=== PATIENT | female | born 1995 | race Caucasian/White ===

== ENCOUNTER 2016-11-13 13:30 | Emergency (ER) | payer OTHER ==
[~2016-11-13] VITALS: Wt 97.0 kg
[2016-11-13] MEDS ORDERED: AZIT250T94 PO (15:18)
[2016-11-13] MEDS ORDERED: D-ME473S18 PO (15:18)
[2016-11-13] MEDS ORDERED: TYL500 PO (15:19)
[2016-11-13] MEDS ORDERED: ACETAMINOPHEN 500 MG TAB PO STA (15:21)
--- NOTE | 2016-11-13 15:38 | ERD ---
ER Documentation Chief Complaint Date/Time DATE: 11/13/16 TIME: 15:30 Chief Complaint fever cough and congestion for the past 2 weeks. no distress. HPI This is a 21-year-old female presents to the ER with a cough for the last 2 weeks. Patient has yellow to green sputum. She developed a fever yesterday. Patient denies any sore throat or ear pain. Patient got her appendix taken out 2 weeks ago at [facility]. Patient still has adelaide in place that she has not been able to follow-up with surgeon. Patient denies any abdominal pain at this time. She denies nausea vomiting or diarrhea. There is no charge from incision site. ROS 12 point review of systems was done, all negative except per HPI. Medications Home Meds Active Scripts Acetaminophen* (Tylenol*) 500 Mg Tab, 1000 MG PO Q8H Y for PAIN AND OR ELEVATED TEMP for 3 Days, TAB Prov:SUNNY CLAIRE 11/13/16 Dextromethorphan Hb-Promethazine Hcl (Promethazine DM Syrup) 473 Ml Syrup, 10 ML PO Q6H Y for COUGH, #4 OZ Prov:SUNNY CLAIRE 11/13/16 Azithromycin* (Zithromax*) 250 Mg Tablet, 250 MG PO .ZPACK DIRECTED, #6 TAB TAKE 500 MG (2 TABS) THE FIRST DAY THEN 250 MG (1 TAB) DAYS 2-5 Prov:SUNNY CLAIRE 11/13/16 Allergies Allergies: Coded Allergies: No Known Allergy (Unverified , 11/13/16) PMhx/Soc Medical and Surgical Hx: pt denies Medical Hx, pt denies Surgical Hx Hx Alcohol Use: No Hx Substance Use: No Hx Tobacco Use: No Smoking Status: Never smoker Physical Exam Vitals Vital Signs Date Time Temp Pulse Resp B/P Pulse Ox O2 Delivery O2 Flow Rate FiO2 11/13/16 13:45 101.4 115 21 125/74 98 Physical Exam GENERAL: The patient is well developed and appropriate for usual state of health , in no apparent distress. HEENT: Atraumatic. CHEST: Clear to auscultation bilaterally. There are no rales, wheezes or rhonchi. HEART: Regular rate and rhythm. No murmurs, clicks, rubs or gallops. ABDOMEN: Soft, nontender and nondistended. Good bowel sounds. No rebound or guarding. No gross peritonitis. No gross organomegaly or masses. No Marquez sign or McBurney point tenderness. NEURO: Alert and oriented. SKIN: patient has a 6cm incision site with [address] no surrounding erythema, wound dehiscence or discharge. Results 24 hrs Current Medications Medications (Trade) Dose Ordered Sig/Kwadwo Route PRN Reason Start Time Stop Time Status Last Admin Dose Admin Acetaminophen (Tylenol Tab) 1,000 mg ONCE STAT PO 11/13/16 15:21 11/13/16 15:22 DC 11/13/16 15:25 Procedures/MDM Patient was examined by myself and by Dr. Amaya. At this time suspicion for post surgery complication is low. Patient does not have any abdominal pain and her physical examination is benign. Patient likely has an upper respiratory infection which may be bacterial in etiology. She will be treated with azithromycin. She will also be sent home with promethazine, Tylenol for fevers. Staple Removal by me: Lorida removed with staple remover without incident. Wound shows no evidence of infection, foreign body, neurologic injury, vascular injury, open joint or tendon laceration. Patient to follow up PRN. Patient is to follow-up with her primary care doctor within 1-2 days or return to ER sooner if symptoms worsen. My medical decision making was shared with the mother she understands and agrees with plan. Departure Diagnosis: Primary Impression: Upper respiratory infection Condition: Stable Patient Instructions: What Is Bronchitis? Additional Instructions: Call your primary care doctor TOMORROW for an appointment during the next 1-2 days.See the doctor sooner or return here if your condition worsens before your appointment time. SUNNY CLAIRE Nov 13, 2016 15:38
== END 2016-11-13 15:40 | disposition home or self-care (01) ==
LOC: FTE 13:30
DX: J06.9 Acute upper respiratory infection, unspecified (principal)
CPT/HCPCS: 99284

== ENCOUNTER 2017-04-13 22:50 | Emergency (ER) | payer MEDICAID, OTHER ==
[~2017-04-13] VITALS: Ht 160 cm; Wt 98.5 kg
[~2017-04-13 22:50] MED LIST: AZIT250T94 PO; D-ME473S18 PO; TYL500 PO
[2017-04-13 22:56] VITALS: Ht 160 cm; Wt 98.5 kg
[2017-04-13] MEDS ORDERED: LORAZEPAM 1 MG TAB PO ONE (23:30)
[2017-04-14 00:15] VITALS: BP 111/48; PULSE 92; RESP 22; TEMP 98.4
--- NOTE | 2017-04-14 02:56 | ERD ---
ER Documentation Chief Complaint Date/Time DATE: 04/14/17 TIME: 02:54 Chief Complaint felt better today vs yesterday but in her mind she still just wants to HPI Patient is a 21-year-old female with high cholesterol who presents with "bad anxiety". The patient says that she was having nausea and vomiting as well with eating. She feels depressed. She denies suicidal or homicidal ideations she says "I just felt [place] at the puncture pillow". She said that her dad left her mother 1 month ago for another woman. She said that she started having anxiety after she had her appendix removed in October. Upon review of old medical records the patient had one previous visit to the ER in October 2016. Review of the emergency department information exchange system shows visits to 2 separate emergency departments. She does not currently have a primary doctor. ROS All systems reviewed and are negative except as per history of present illness. Medications Home Meds Active Scripts Acetaminophen* (Tylenol*) 500 Mg Tab, 1000 MG PO Q8H Y for PAIN AND OR ELEVATED TEMP for 3 Days, TAB Prov:SUNNY CLAIRE 11/13/16 Dextromethorphan Hb-Promethazine Hcl (Promethazine DM Syrup) 473 Ml Syrup, 10 ML PO Q6H Y for COUGH, #4 OZ Prov:SUNNY CLAIRE 11/13/16 Azithromycin* (Zithromax*) 250 Mg Tablet, 250 MG PO .ZPACK DIRECTED, #6 TAB TAKE 500 MG (2 TABS) THE FIRST DAY THEN 250 MG (1 TAB) DAYS 2-5 Prov:SUNNY CLAIRE 11/13/16 Allergies Allergies: Coded Allergies: No Known Allergy (Unverified , 11/13/16) PMhx/Soc Positive for high cholesterol Hx Alcohol Use: No Hx Substance Use: No Hx Tobacco Use: No FmHx Family History: diabetes Physical Exam Vitals Vital Signs Date Time Temp Pulse Resp B/P Pulse Ox O2 Delivery O2 Flow Rate FiO2 04/14/17 00:15 98.4 92 22 111/48 96 Room Air 04/13/17 22:56 98.5 95 22 136/83 98 Physical Exam Const: No acute distress Head: Atraumatic Eyes: Normal Conjunctiva ENT: Normal External Ears, Nose and Mouth. Neck: Full range of motion..~ No meningismus. Resp: Clear to auscultation bilaterally Cardio: Regular rate and rhythm, no murmurs Abd: Soft, non tender, non distended. Normal bowel sounds Skin: No petechiae or rashes Back: No midline or flank tenderness Ext: No cyanosis, or edema Neur: Awake and alert Psych: Depressed affect but no suicidal or homicidal ideation Results 24 hrs Current Medications Medications (Trade) Dose Ordered Sig/Kwadwo Route PRN Reason Start Time Stop Time Status Last Admin Dose Admin Lorazepam (Ativan) 1 mg ONCE ONCE PO 04/13/17 23:30 04/13/17 23:31 DC 04/13/17 23:44 Procedures/MDM Patient is a 21-year-old female presents with depression. She has anxiety as well. She does not appear to have suicidal or homicidal ideation and at this point I doubt the need for 5150 hold. I believe outpatient management is appropriate. She will be given a short course of Ativan for anxiety but will need to follow-up with the local psychiatric resources which I will provide for her. She can return for any worsening symptoms. She should also follow-up with the local clinics for a primary doctor. She can return for any worsening symptoms. She will be discharged with her mom. Departure Diagnosis: Primary Impression: Depression Depression Type: unspecified Qualified Code: F32.9 - Depression, unspecified depression type Condition: Fair Patient Instructions: Depression Referrals: PENDING SALE TO [facility] YOU HAVE RECEIVED A MEDICAL SCREENING EXAM AND THE RESULTS INDICATE THAT YOU DO NOT HAVE A CONDITION THAT REQUIRES URGENT TREATMENT IN THE EMERGENCY DEPARTMENT. FURTHER EVALUATION AND TREATMENT OF YOUR CONDITION CAN WAIT UNTIL YOU ARE SEEN IN YOUR DOCTORS OFFICE WITHIN THE NEXT 1-2 DAYS. IT IS YOUR RESPONSIBILITY TO MAKE AN APPOINTMENT FOR FOLOW-UP CARE. IF YOU HAVE A PRIMARY DOCTOR --you should call your primary doctor and schedule an appointment IF YOU DO NOT HAVE A PRIMARY DOCTOR YOU CAN CALL OUR PHYSICIAN REFERRAL HOTLINE AT IF YOU CAN NOT AFFORD TO SEE A PHYSICIAN YOU CAN CHOSE FROM THE FOLLOWING PENDING SALE TO [facility] [address] [place] [facility] [address] [facility] [address] [facility] [address] [facility] [address] [facility]. [facility] [address] Additional Instructions: Call your primary care doctor TOMORROW for an appointment during the next 1-2 days.See the doctor sooner or return here if your condition worsens before your appointment time. INOCENCIO MCMILLAN MD Apr 14, 2017 02:56
== END 2017-04-14 00:17 | disposition home or self-care (01) ==
LOC: E/R 22:50
DX: F32.9 Major depressive disorder, single episode, unspecified (principal)
CPT/HCPCS: Z7502; Z7610; 99283

== ENCOUNTER 2017-04-19 23:01 | Emergency (ER) | payer MEDICAID ==
[~2017-04-19] VITALS: Ht 162.6 cm; Wt 97.0 kg
[2017-04-19 23:09] VITALS: Ht 162.6 cm; Wt 97.0 kg
[2017-04-20] MEDS ORDERED: LORA1TAB PO (01:31)
--- NOTE | 2017-04-20 01:31 | ERD ---
ER Documentation Chief Complaint Date/Time DATE: 04/20/17 TIME: 01:25 Chief Complaint C/O ANXIETY STARTED TONIGHT HPI 21-year-old female presents here in emergency department for an anxiety episode tonight, patient took her Ativan and she felt better. Patient states that her anxiety episode was more worse tonight. Patient denies any chest pain palpitations at this time. On the contrary of what mentioned in triage, patient does not have any breast pain. Patient does not have any shortness of breath. Patient states that she is running out of her Ativan and 1 some refill of it. Patient does verbalize wanting to get resources regarding psychiatric evaluation. She denies any homicidal or suicidal ideations at this time. ROS All systems reviewed and are negative except as per history of present illness. Medications Home Meds Active Scripts Acetaminophen* (Tylenol*) 500 Mg Tab, 1000 MG PO Q8H Y for PAIN AND OR ELEVATED TEMP for 3 Days, TAB Prov:SUNNY CLAIRE 11/13/16 Dextromethorphan Hb-Promethazine Hcl (Promethazine DM Syrup) 473 Ml Syrup, 10 ML PO Q6H Y for COUGH, #4 OZ Prov:SUNNY CLAIRE 11/13/16 Azithromycin* (Zithromax*) 250 Mg Tablet, 250 MG PO .ZPACK DIRECTED, #6 TAB TAKE 500 MG (2 TABS) THE FIRST DAY THEN 250 MG (1 TAB) DAYS 2-5 Prov:SUNNY CLAIRE 11/13/16 Allergies Allergies: Coded Allergies: No Known Allergy (Unverified , 04/19/17) PMhx/Soc History of Surgery: Yes (appendectomy) Anesthesia Reaction: No Hx Neurological Disorder: No Hx Respiratory Disorders: No Hx Cardiac Disorders: No Hx Psychiatric Problems: Yes (anxiety) Hx Miscellaneous Medical Probl: No Hx Alcohol Use: No Hx Substance Use: No Hx Tobacco Use: No Smoking Status: Never smoker FmHx Family History: No coronary disease, No diabetes, No other Physical Exam Vitals Vital Signs Date Time Temp Pulse Resp B/P Pulse Ox O2 Delivery O2 Flow Rate FiO2 04/19/17 23:09 98.1 84 20 125/57 97 Physical Exam GENERAL: The patient is well developed and appropriate for usual state of health, in no apparent distress. CHEST: Clear to auscultation bilaterally. There are no rales, wheezes or rhonchi. HEART: Regular rate and rhythm. No murmurs, clicks, rubs or gallops. No S3 or S4. ABDOMEN: Soft, nontender and nondistended. Good bowel sounds. No rebound or guarding. No gross peritonitis. No gross organomegaly or masses. No Marquez sign or McBurney point tenderness. BACK: No midline or flank tenderness. EXTREMITIES: Equal pulses bilaterally. There is no peripheral clubbing, cyanosis or edema. No focal swelling or erythema. Full range of motion. Grossly neurovascularly intact. NEURO: Alert and oriented. Cranial nerves 2-12 intact. Motor strength in all 4 extremities with 5/5 strength. Sensation grossly intact. Normal speech and gait. SKIN: There is no apparent rash or petechia. The skin is warm and dry. HEMATOLOGIC AND LYMPHATIC: There is no evidence of excessive bruising or lymphedema. No gross cervical, axillary, or inguinal lymphadenopathy. PSYCH: Patient calm and cooperative. Not verbalizing homicidal or suicidal ideation. Procedures/MDM Medical decision making: Patient had slightly attack tonight, patient states that the anxiety medication, Ativan has helped her. Patient is currently on Ativan 1 mg for the anxiety. Patient verbalizes wanting resources for help psychiatric help. Patient does not verbalize emissary suicidal ideations. Patient does not have any delusions or hallucinations. Patient does not any chest pain. Patient does not have any symptoms of any acute coronary syndrome. Prescription will be given for Ativan 1 mg, 10 pills, is advised to see psychiatric lpn, was given resources. Patient was advised to return to emergency department for homicidal or suicidal ideations, or any other worsening symptoms. Disposition: Home. Stable. Departure Diagnosis: Primary Impression: Anxiety Condition: Stable Patient Instructions: Anxiety Reaction Additional Instructions: [facility] 24 Hour / Walk-In Program [address] [place] [id number] [address] Diver: Taya Jones Serving adult and youth (12 years old and older) population PRATIK ZHAO NP Apr 20, 2017 01:31
[2017-04-20 01:42] VITALS: BP 128/66; PULSE 66; RESP 20
== END 2017-04-20 01:43 | disposition home or self-care (01) ==
LOC: FTE 23:01
DX: F41.9 Anxiety disorder, unspecified (principal)
CPT/HCPCS: 99283

== ENCOUNTER 2019-01-02 17:34 | Emergency (ER) | payer MEDICAID, OTHER ==
[~2019-01-02] VITALS: Wt 90.0 kg
[~2019-01-02 17:34] MED LIST changes: +AZIT250T PO; -AZIT250T94 PO; +LORA1TAB PO
[2019-01-02 17:39] VITALS: BP 140/68; PULSE 112; RESP 20
[2019-01-02] MEDS ORDERED: NAPR-985 PO (19:39)
[2019-01-02] MEDS ORDERED: CEPH-443 PO (19:39)
--- NOTE | 2019-01-05 01:18 | ERD ---
ER Documentation Chief Complaint Chief Complaint LOWER BACK PAIN WITH DYSURIA FOR THE PAST WEEK. SORE THROAT NOTED. HPI 23-year-old female with no significant past medical history presenting to the emergency department with complaints of dysuria for the past 2 weeks. She has also had mid back pain to the lumbar region intermittently for the past 3 days. Other associated symptoms include sore throat and fevers. She took Tylenol at home with some relief. Symptoms are rated 7/10 in severity and constant. She denies any other symptoms currently. ROS All systems reviewed and are negative except as per history of present illness. Medications Home Meds Active Scripts Naproxen* (Naprosyn*) 500 Mg Tablet, 500 MG PO BID PRN for PAIN AND/OR INFLAMMATION, #30 TAB Prov:JUJU KAUFMAN PA-C 01/02/19 Cephalexin* (Keflex*) 500 Mg Capsule, 500 MG PO TID for 7 Days, CAP Prov:JUJU KAUFMAN PA-C 01/02/19 Lorazepam* (Lorazepam*) 1 Mg Tablet, 1 MG PO Q8H PRN for ANXIETY, #10 TAB Prov:PRATIK ZHAO NP 04/20/17 Acetaminophen* (Tylenol*) 500 Mg Tab, 1000 MG PO Q8H PRN for PAIN AND OR ELEVATED TEMP for 3 Days, TAB Prov:SUNNY CLAIRE 11/13/16 Dextromethorphan Hb-Promethazine Hcl (Promethazine DM Syrup) 473 Ml Syrup, 10 ML PO Q6H PRN for COUGH, #4 OZ Prov:SUNNY CLAIRE 11/13/16 Azithromycin* (Zithromax*) 250 Mg Tablet, 250 MG PO .ZPACK DIRECTED, #6 TAB TAKE 500 MG (2 TABS) THE FIRST DAY THEN 250 MG (1 TAB) DAYS 2-5 Prov:SUNNY CLAIRE 11/13/16 Allergies Allergies: Coded Allergies: No Known Allergy (Unverified , 04/19/17) PMhx/Soc History of Surgery: Yes (appendectomy) Anesthesia Reaction: No Hx Neurological Disorder: No Hx Respiratory Disorders: No Hx Cardiac Disorders: No Hx Psychiatric Problems: Yes (anxiety) Hx Miscellaneous Medical Probl: No Hx Alcohol Use: No Hx Substance Use: No Hx Tobacco Use: No FmHx Family History: No diabetes Physical Exam Vitals Vital Signs Date Temp Pulse Resp B/P (MAP) Pulse Ox O2 O2 Flow FiO2 Time Delivery Rate 01/02/19 100.8 112 20 140/68 98 17:39 (92) Physical Exam Const: No acute distress Head: Atraumatic Eyes: Normal Conjunctiva ENT: Normal External Ears, Nose and Mouth. Bilateral tonsillar hypertrophy. No exudate. Uvula is midline. There is erythema noted to the posterior pharynx. Neck: Full range of motion. No meningismus. Resp: Clear to auscultation bilaterally Cardio: Regular rate and rhythm, no murmurs Abd: Soft, non tender, non distended. Normal bowel sounds Skin: No petechiae or rashes Back: No midline or flank tenderness. Tenderness palpation of the paraspinal muscles of the lumbar spine bilaterally. No CVA tenderness. Ext: No cyanosis, or edema Neur: Awake and alert Psych: Normal Mood and Affect Results 24 hrs Laboratory Tests Test 01/02/19 18:50 01/02/19 18:51 POC Beta HCG, Qualitative NEGATIVE Bedside Urine pH (LAB) 6.0 Bedside Urine Protein (LAB) Trace Bedside Urine Glucose (UA) Negative Bedside Urine Ketones (LAB) Trace Bedside Urine Blood Negative Bedside Urine Nitrite (LAB) Negative Bedside Urine Leukocyte Esterase (L Negative Procedures/MDM 23-year-old female presenting to the emergency department with signs and symptoms most consistent with musculoskeletal low back pain as well as pharyngitis. Patient's urine dip showed no evidence of urinary tract infection. She will be treated as an outpatient for pharyngitis, suspected bacterial etiology. She will be given prescription for antibiotics and pain medication. No evidence of meningitis, sepsis, pyelonephritis, or other emergencies. Patient is in agreement with the diagnosis, plan, need for follow-up, return precautions. Patient's blood pressure was elevated (>120/80) but appears stable without evidence of hypertension emergency or urgency. The patient is to follow-up and pursue outpatient monitoring and therapy with their primary care physician within 1 week and return immediately if they have any new, worsening, or concerning symptoms. Departure Diagnosis: Primary Impression: Pharyngitis Additional Impression: Back pain Condition: Fair Patient Instructions: Pharyngitis, Strep (Presumed) Additional Instructions: Call your primary care doctor TOMORROW for an appointment during the next 1-2 days.See the doctor sooner or return here if your condition worsens before your appointment time. JUJU KAUFMAN PA-C January 05, 2019 01:18
== END 2019-01-02 19:57 | disposition home or self-care (01) ==
LOC: FTE 17:34
DX: J02.9 Acute pharyngitis, unspecified (principal); M54.5 Low back pain
CPT/HCPCS: 81003; 81025; 87086; Z7502; 99283